=== PATIENT | male | born 1990 | race African-American/Black ===

== ENCOUNTER 2020-09-24 09:34 | Emergency (ER) | payer OTHER ==
[2020-09-24 09:46] VITALS: BP 124/82; PULSE 71; TEMP 98.1; BMI 44.4
== END 2020-09-24 10:37 | disposition home or self-care (01) ==
LOC: JER 09:34
DX: L23.2 Allergic contact dermatitis due to cosmetics (principal)
CPT/HCPCS: 99283-25

== ENCOUNTER 2021-05-30 12:36 | Emergency (ER) | payer OTHER ==
[2021-05-30 12:42] VITALS: BP 117/64; PULSE 87; TEMP 98.2; BMI 45.1
== END 2021-05-30 13:58 | disposition home or self-care (01) ==
LOC: JERFT 12:36
DX: S90.851A Superficial foreign body, right foot, initial encounter (principal)
CPT/HCPCS: 73630-TC-RT-FY; 99284-25